=== PATIENT | female | born 1980 | race Caucasian/White ===

== ENCOUNTER 2018-07-31 23:53 | Emergency (ER) | payer OTHER, MEDICAID, SELFPAY ==
[2018-08-01 00:02] VITALS: BP 138/91; PULSE 104; RESP 20; TEMP 36.4; O2SAT 100; BMI 22.1
--- NOTE | 2018-08-01 00:48 | ED_ITS ---
HPI - Ear Problem General Chief complaint: Ear Stated complaint: neck/ear problem right weak noel feeling Time Seen by Provider: 08/01/18 00:40 Source: patient Mode of arrival: ambulatory Limitations: no limitations History of Present Illness HPI Narrative: Patient is a 37-year-old female presenting with a couple of complaints. her initial complaint to nursing was bilateral ear pain and jaw pain. She apparently was quite anxious initially now she is difficult to arouse but is arousable and now complaining of headache. she has no gross deficits no weakness numbness or tingling. He is difficult to get any history from. Denies taking any drugs she states that she did smoke some marijuana it may have been laced with something. MD Complaint: ear pain and other (Headache) Severity: mild Review of Systems Review of Systems ROS Unobtainable: All systems reviewed & are unremarkable except as noted in HPI and below Constitutional Denies chills, Denies fever(s), Reports headache(s), Denies lethargy and Denies weakness Eyes Denies change in vision, Denies eye discharge, Denies irritation and Denies loss of vision ENT Ears, Nose, Mouth, and Throat: Reports as per HPI and Reports headache(s) Cardiovascular Denies chest pain, Denies irregular heart rhythm, Denies lightheadedness, Denies palpitations, Denies dyspnea, Denies dyspnea on exertion and Denies orthopnea Respiratory Denies cough, Denies dyspnea, Denies dyspnea on exertion and Denies wheezing Gastrointestinal Gastrointestinal: Denies abdominal pain, Denies change in bowel habits, Denies diarrhea, Denies nausea and Denies vomiting Genitourinary Denies hematuria, Denies flank pain, Denies urinary incontinence and Denies urinary urgency Musculoskeletal Denies back pain, Denies muscle weakness, Denies numbness and Denies tingling Integumentary/Breasts Denies pruritus, Denies erythema, Denies rash and Denies wounds Neurologic Reports headache(s), Denies loss of vision, Denies numbness, Denies tingling and Denies weakness Endocrine Denies palpitations Allergic/Immunologic Denies wheezing [facility] Medical History Patient denies significant medical history (Acute) Social History Smoking Status: Current every day smoker Social History (Reviewed 08/01/18 @ 03:41 by LEIGH Casas Smoking Status: Current every day smoker Exam Initial Vital Signs Initial Vital Signs: Vital Signs Temperature 97.6 F 08/01/18 00:02 Pulse Rate 104 H 08/01/18 00:02 Respiratory Rate 20 08/01/18 00:02 Blood Pressure 138/91 H 08/01/18 00:02 Pulse Oximetry 100 08/01/18 00:02 GENERAL: Sleeping but arousable and in no acute distress. HEENT: Head atraumatic,EOMI, pupils reactive neck is supple no vertebral tenderness EARS: Tympanic membranes visualized on both sides no erythema no bulging CARDIOVASCULAR: Regular rate and rhythm without murmurs, rubs or gallops. RESPIRATORY: Breath sounds equal bilaterally, no wheezes rales or rhonchi. ABDOMEN: Soft, nontender. Normoactive bowel sounds all 4 quadrants. No guarding or rebound. EXTREMITIES: Normal range of motion, no clubbing or edema. Neurovascularly intact NEUROLOGICAL: Alert and oriented to person and place and time. Cranial nerves II through XII grossly intact. 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 Course Orders Ordered: ED Orders 08/01/18 01:36 Urine Drug Screen, Rapid Stat Discontinued Medications Ibuprofen (Advil) 800 mg PO NOW ONE Stop: 08/01/18 00:48 Vital Signs - 8 hr 08/01/18 00:02 08/01/18 02:02 08/01/18 03:54 Temperature 97.6 F Pulse Rate 104 H 92 H 88 Respiratory Rate 20 18 18 Blood Pressure 138/91 H Blood Pressure [Left Arm] 135/88 140/92 H Pulse Oximetry 100 100 100 Medical Decision Making Lab Data Lab Results 08/01/18 Range/Units 01:36 Urine Opiates Screen Negative (Negative) Ur Oxycodone Screen Negative (Negative) Urine Methadone Screen Negative (Negative) Ur Barbiturates Screen Negative (Negative) U Tricyclic Antidepress Negative (Negative) Ur Phencyclidine Scrn Negative (Negative) Ur Amphetamines Screen Positive H (Negative) U Methamphetamines Scrn Negative (Negative) Ur MDMA Scrn (Ecstasy) Negative (Negative) U Benzodiazepines Scrn Negative (Negative) Urine Cocaine Screen Negative (Negative) U Marijuana (THC) Screen Positive H (Negative) Point of Care Testing Test Results Negative Urine Dip Bedside Urine Glucose Negative Bedside Urine Bilirubin + 1 Bedside Urine Ketone +/- 5 Urine Specific Lester 1.030 Bedside Urine Occult Blood - Negative Bedside Urine pH 5.5 Bedside Urine Protein +/- 15 Bedside Urine Urobilinogen - Negative Bedside Urine Nitrite - Negative Bedside Urine Leukocytes + 70 Esterase Point of care testing: Point of Care Testing Test Results Negative Urine Dip Bedside Urine Glucose Negative Bedside Urine Bilirubin + 1 Bedside Urine Ketone +/- 5 Urine Specific Lester 1.030 Bedside Urine Occult Blood - Negative Bedside Urine pH 5.5 Bedside Urine Protein +/- 15 Bedside Urine Urobilinogen - Negative Bedside Urine Nitrite - Negative Bedside Urine Leukocytes + 70 Esterase MDM Narrative Medical decision making narrative: Patient slept in the emergency department for some time. When she woke up she was overall more appropriate feeling better and discharged home. Discharge Plan Departure Patient Disposition: Home Clinical Impression: Headache Qualifiers: Headache type: unspecified Headache chronicity pattern: acute headache Intractability: not intractable Qualified Code(s): R51 - Headache Interventions: ED Discharge Assessment Last Done: 08/01/18 05:35 Instructions: DI for Headache Activity Restrictions/Additional Instructions: *You have been diagnosed with headache *What to do: No sign of ear infection at this time *Continue to take medications as directed *Follow up with your primary care provider in 2-3 days *Return to ER if you should have worsening headache, worsening ear pain or any new, worsening or concerning symptoms
[2018-08-01 01:49] LABS: Urine Amphetamines Positive (Negative); Urine Barbiturates Negative (Negative); Urine Benzodiazepines Negative (Negative); Urine Cocaine Negative (Negative); Urine MDMA Negative (Negative); Urine Methadone Negative (Negative); Urine Methamphetamines Negative (Negative); Urine Morphine/Opi cutoff 2000 Negative (Negative); Urine Oxycodone Negative (Negative); Urine Phencyclidine Negative (Negative); Urine Tetrahydrocannabinol Positive (Negative); Urine Tricyclic Antidepressant Negative (Negative)
[2018-08-01 02:02] VITALS: BP 135/88; PULSE 92; RESP 18; O2SAT 100
[2018-08-01 03:54] VITALS: BP 140/92; PULSE 88; RESP 18; O2SAT 100
[2018-08-01 04:45] VITALS: BP 144/87; PULSE 84; RESP 18; O2SAT 100
== END 2018-08-01 05:35 | disposition home or self-care (01) ==
PROVIDERS: Emergency Provider Emergency Medicine
DX: R51 Headache (principal); H92.03 Otalgia, bilateral; R68.84 Jaw pain
CPT/HCPCS: 80305; 81003; 81025; 99282; 99283